=== PATIENT | female | born 1995 ===

== ENCOUNTER 2020-02-08 14:02 | Emergency (ER) | payer OTHER ==
[~2020-02-08] VITALS: Ht 157.5 cm; Wt 86.6 kg
[2020-02-08] MEDS ORDERED: IBUP600 PO (15:38)
[2020-02-08] MEDS ORDERED: Norco 5-325 Ta1 EACH PO (15:38)
== END 2020-02-08 15:46 | disposition home or self-care (01) ==
LOC: ER 14:02
DX: M54.5 Low back pain (principal); G89.29 Other chronic pain
CPT/HCPCS: 99282

== ENCOUNTER 2020-02-10 20:40 | Emergency (ER) | payer OTHER ==
[~2020-02-10] VITALS: Ht 157.5 cm; Wt 86.6 kg
[~2020-02-10 20:40] MED LIST: IBUP600 PO; Norco 5-325 Ta1 EACH PO
== END 2020-02-10 22:08 | disposition home or self-care (01) ==
LOC: ER 20:40
DX: M54.5 Low back pain (principal); G89.29 Other chronic pain
CPT/HCPCS: 99282

== ENCOUNTER 2020-05-09 19:17 | Emergency (ER) | payer OTHER ==
[~2020-05-09] VITALS: Ht 157.5 cm; Wt 86.2 kg
[2020-05-09] MEDS ORDERED: ALBU90OI INH (21:01)
[2020-05-09] MEDS ORDERED: PRED20 PO (21:37)
== END 2020-05-09 21:49 | disposition home or self-care (01) ==
LOC: ER 19:17
DX: J45.901 Unspecified asthma with (acute) exacerbation (principal); Z79.899 Other long term (current) drug therapy
CPT/HCPCS: 94640; 99284; J7512